=== PATIENT | female | born 2005 ===

== ENCOUNTER 2023-09-28 14:27 | Emergency (ER) | payer MEDICAID, SELFPAY ==
[2023-09-28 14:46] VITALS: BP 101/81; PULSE 91; RESP 16; TEMP 37.1; O2SAT 100
--- NOTE | 2023-09-28 14:52 | ED.SKABFB ---
HPI - Skin/Abscess/Foreign Bdy General Chief complaint: Skin/Abscess/Foreign Body Stated complaint: Cold Sores Time Seen by Provider: 09/28/23 14:50 Source: patient Mode of arrival: ambulatory Limitations: no limitations History of Present Illness HPI narrative: Chip is a 17-year-old female patient presenting to the clinic today with complaints of cold sores to the left upper and left lower lip. She reports that this has been going on for few days. Has been applying Abreva to the area with minimal relief. Denies any fever, chills, body aches. Has been having outbreaks of cold sores since she was little. Related Data Home Medications Medication Instructions Recorded Confirmed etonogestrel 68 mg subdermal 68 mg subdermal ONCE 09/28/23 09/28/23 implant (Nexplanon) Allergies Allergy/AdvReac Type Severity Reaction Status Date / Time No Known Allergies Allergy Verified 09/28/23 14:57 Review of Systems Review of Systems: Pertinent positives per HPI. Patient denies any fever, chills, rash, headache, visual changes, dizziness, cough, runny nose, sore throat, shortness of breath, chest pain, palpitations, nausea, vomiting, diarrhea, constipation, abdominal pain, or any urinary issues. PMFSH Comments At the time of my signature, I reviewed and agree with the nursing past medical, surgical, social, and family history. There is no relevant family history pertinent to the patient complaint. Exam Narrative: General: Well-developed, well nourished, in no apparent distress Head: Normocephalic, atraumatic. Nose: Nares patent, no discharge, no inflammation, no sinus tenderness. Mouth: Oropharynx without lesions or masses, good dentition, MMM. Raised tender vesicular lesions to the left lower/left upper lip. Neck: Supple, trachea midline, no enlargement of anterior or posterior cervical nodes, no thyroid masses or goiter palpable. Cardio: Regular rate and rhythm, s1 and s2 normal, no murmur appreciated. Resp: Clear to auscultation bilaterally anteriorly and posteriorly, no rhonchi, rales, wheezing or rubs Course Course Emergency Course: Portions of this record may have been created with voice recognition software. Level of Care: Express Care Visit Vital Signs Vital signs: Vital signs reviewed MDM - Skin/Abscess/Foreign Bdy MDM Narrative Medical decision making narrative: At the time of visit patient is resting comfortably on the exam table. Patient appears to be nontoxic. 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 Prescription for acyclovir was sent to the pharmacy. Supportive measures were discussed with the patient and they voiced understanding discharge instructions and agrees to treatment plan. Return precautions reviewed Differential Diagnosis Differential diagnosis: Likely abscess of skin or subcutaneous tissue, viral exanthem, herpes zoster, allergic reaction to drug, cellulitis, eczema, insect bites, impetigo, contact dermatitis and other (HSV infection) Discharge Plan Discharge Clinical Impression: HSV (herpes simplex virus) infection Patient Disposition: Home, Self-Care Condition: Stable Instructions: Antibiotic Form, Oral Herpes Infection (ED) Additional Instructions: May continue to put Abreva to the affected area as directed Take acyclovir as prescribed Avoid kissing, sharing drinks, or sharing eating utensils until healed May take Tylenol/ibuprofen as needed for pain Follow-up with your primary care doctor next week if symptoms persist Prescriptions: New acyclovir 400 mg tablet 400 mg PO TID 7 Days Qty: 21 0RF Follow-up/Referrals: PHYSICIAN,[employer] HELPER [Primary Care Provider] - Time of Disposition: 14:54 Quality NIHSS Nursing Documentation ED NIHSS nursing documentation: reviewed/agree
== END 2023-09-28 15:00 | disposition home or self-care (01) ==
PROVIDERS: Emergency Provider Nurse Practitioner Family
DX: B00.1 Herpesviral vesicular dermatitis (principal)
CPT/HCPCS: 99203; G0463